=== PATIENT | female | born 1995 | race Two or more races ===

== ENCOUNTER 2016-05-19 12:34 | Emergency (ER) | payer MEDICAID ==
[2016-05-19 12:43] VITALS: RESP 16; TEMP 98.4
[2016-05-19] MEDS ORDERED: IBUPROFEN 600 MG TAB PO ONE ×2 (12:59→13:10)
[2016-05-19] MEDS ORDERED: DEXAMETHASONE 4 MG TAB PO ONE (13:35)
[2016-05-19] MEDS ORDERED: DEXAMETHASONE 10 MG/ML VIAL ONE (13:36)
[2016-05-19] MEDS ORDERED: HYDROCOD/APAP 5/325 PREPACK#6 BTL TAKEHOME ONE ×2 (13:37→13:47)
--- NOTE | 2016-05-19 13:46 | EDPHY ---
H & P Time Seen by Provider: 05/19/16 13:18 HPI/ROS: HPI Sore throat. 20-year-old female by private vehicle. Patient reports a worsening sore throat greater on the right side of her throat and radiating up through the ear for the last 4 days. She is able swallow by pain is worse with swallowing. Denies any voice changes or stridor. She has had some nasal congestion/rhinitis as well. ROS: Constitutional: No fever, no chills. No weakness. Eyes: No discharge. No changes in vision. ENT: As above. Respiratory: No cough. No shortness of breath. Cardiac: No chest pain, no palpitations. Gastrointestinal: No abdominal pain, no vomiting, no diarrhea. Genitourinary: No hematuria. No dysuria or increased frequency with urination. Musculoskeletal: No back pain. No neck pain. No myalgias or arthralgias. Skin: No rashes. Neurological: No headache. No focal weakness or altered sensation. Past medical history: Strep throat. Social history: Here by herself. Physical Exam: General Appearance: Alert, no distress. This patient is responding to questions appropriately and in full sentences. This patient appears well- hydrated and well-nourished. Eyes: Pupils equal and round no pallor or injection. No lid edema, erythema or injection. ENT, Mouth: Mucous membranes are moist. Some pharyngeal erythema noted. Scant exudates on the right pharyngeal arches tonsillar pillar. No asymmetry to suggest abscess. Right external auditory canal and tympanic membrane are normal on speculum examination. Left tympanic membrane and external auditory canal are normal. Neurological: Motor sensory function is grossly intact. Cranial nerves are normal. Gait is normal. Skin: Warm and dry, no rashes. Musculoskeletal: Neck is supple and nontender. No significant cervical lymphadenopathy. Extremities are symmetrical. All joints range without pain or impingement. Psychiatric: No agitation. No depression. Database: Rapid strep-negative. EKG: Imaging: Procedures: Emergency department course: Patient given 800 mg of ibuprofen in the emergency department. After my evaluation she received 10 mg of oral Decadron. She is driving. Rapid strep obtained. Results of this assays discussed with her. She feels comfortable going home and I feel she is safe for discharge. Will prescribe high-dose ibuprofen, limited Vicodin and a repeat dose of Decadron to be taken tomorrow afternoon. Patient comfortable with this plan. Return to emergency department precautions discussed. All of her questions were answered. Follow-up reviewed. She was discharged in good condition. Differential Diagnosis: The differential diagnosis on this patient includes but is not limited to viral pharyngitis, streptococcal pharyngitis. Retropharyngeal abscess, peritonsillar abscess, tracheitis, epiglottitis unlikely. This represents a partial list of diagnoses considered. These considerations are based on history, physical exam , past history, reassessment and diagnostic testing. Smoking Status: Never smoked Constitutional: Initial Vital Signs Temperature (C) 36.9 C 05/19/16 12:41 Heart Rate 88 05/19/16 12:41 Respiratory Rate 16 05/19/16 12:41 Blood Pressure 120/73 05/19/16 12:41 O2 Sat (%) 96 05/19/16 12:41 Allergies/Adverse Reactions: No Known Allergies Allergy (Verified 05/19/16 12:40) Home Medications: Medication Instructions Recorded Dexamethasone [Decadron 4 MG (RX)] 8 mg PO ONCE #2 tab 05/19/16 QUEtiapine FUMARATE [Seroquel 50 50 mg PO DAILY 05/19/16 mg (*)] lamoTRIgine [LamICTAL 100 MG (*)] 100 mg PO 05/19/16 Medical Decision Making - Data Points Laboratory Results: 05/19/16 05/19/16 Unknown 12:57 Group A Strep Screen NEGATIVE (NEGATIVE) Group A Strep DNA Pending Medications Given: Discontinued Medications Dexamethasone (Decadron) 10 mg PO EDNOW ONE Stop: 05/19/16 13:36 Last Admin: 05/19/16 13:38 Dose: 10 mg Ibuprofen (Motrin) 600 mg PO EDNOW ONE Stop: 05/19/16 13:11 Last Admin: 05/19/16 13:30 Dose: 600 mg Departure - Departure Disposition: Home, Routine, Self-Care Clinical Impression: Pharyngitis Condition: Good Instructions: Pharyngitis (ED) Additional Instructions: Read and follow provided instructions. Follow-up with your primary care physician in 1-2 days for re-evaluation. Ibuprofen dosin mg every 6 hours with meals for the next 3 days only. Freeman/Percocet dosin-2 every 4-6 hours for [address] Do not drive on this medication. Take 1 time dose of Decadron tomorrow only as needed for continued sore throat. Return to the emergency department for worsening pain, difficulty swallowing, high fever or other serious concerns. Referrals: [place],. [Primary Care Provider] - As per Instructions Prescriptions: Dexamethasone [Decadron 4 MG (RX)] 8 mg PO ONCE #2 tab
[2016-05-19 14:11] VITALS: BP 125/81; PULSE 81; O2SAT 98
== END 2016-05-19 14:10 | disposition home or self-care (01) ==
DX: J02.9 Acute pharyngitis, unspecified (principal)

== ENCOUNTER 2016-05-21 02:39 | Emergency (ER) | payer MEDICAID ==
[2016-05-21 02:46] VITALS: RESP 16; TEMP 98.8
[2016-05-21] MEDS ORDERED: KETOROLAC 30 MG/1 ML SDV IVP ONE ×2 (03:29)
[2016-05-21] MEDS ORDERED: DEXAMETHASONE 10 MG/ML VIAL IVP ONE (03:29)
[2016-05-21] MEDS ORDERED: NS 1,000 ML IV ONE ×2 (03:29)
[2016-05-21] MEDS ORDERED: DEXAMETHASONE VARIABLE DOSE IVP/PO ONE (03:30)
--- NOTE | 2016-05-21 03:30 | EDPHY ---
HPI/HX/ROS/PE/MDM Narrative: Chief complaint: Sore throat, difficulty swallowing HPI: 20-year-old female presenting with 3-4 days of increasing sore throat and difficulty swallowing. She was seen emergency department 2 days ago and started on amoxicillin. She was given Decadron and Vicodin at that time as well. Patient states the pain is getting worse. She is unable to swallow. Has not had anything a drink since yesterday. Some subjective fevers and chills. Is unable to swallow her antibiotics or pain medicine. This is due to pain. She is able to handle her secretions. ROS: 10 point Review of Systems is negative except as noted in the HPI. Physical exam: Gen: Awake, Alert, No Distress HEENT: Nose: no rhinorrhea Eyes: PERRLA, EOMI Mouth: Moist mucosa T has asymmetrical swelling with the right peritonsillar region erythematous and swollen with shift of the uvula to the left consistent with possible peritonsillar abscess Neck: Supple, no JVD, no masses Chest: nontender, lungs clear to auscultation Heart: S1, S2 normal, no murmur Abd: Soft, non-tender, no guarding Back: no CVA tenderness, no midline tenderness Ext: no edema, non-tender Skin: no rash Neuro: CN II-XII intact, Sensation grossly intact, Strength 5/5 in bilateral upper and lower extremities (Luis Parra) ED Course: CT scan shows a right-sided 1.5 x 2 cm peritonsillar collection consistent with abscess per Dr. Cleveland. Procedure note: Abscess aspiration. Indication, peritonsillar abscess. Patient was anesthetized with Hurricaine spray with excellent anesthetic effect. Using control syringe, an 18 gauge spinal needle with the richard cut to allow for a needle exposure of a little over a cm in depth the needle was placed in the peritonsillar region centrally and aspirated. There was a scant amount of pus aspirated. This was repeated 3 more times in alternate areas around the site. Patient tolerated the procedure well. There is no significant amounts of pus aspirated. There is slight amount of bleeding without further complication. Procedure was performed by myself. 20-year-old with peritonsillar abscess. I have ordered 3 g of IV Unasyn. I have attempted aspiration with 3-4 needle sticks without any successful aspiration. Ear Nose and Throat doctors been paged. Dr Miller agrees with plan for IV antibiotics. She has already gotten steroids now. He will see her later this morning for drainage in the ED with plan to go home. (Luis Parra ) This patient was cared for by Dr. Parra. She was discharged from the emergency department to go to the Otolaryngology office for drainage of her peritonsillar abscess. I was not involved in her care. (Dorene Lovell) - Data Points Laboratory Results: 05/21/16 03:43 Monoscreen NEGATIVE (NEGATIVE) Medications Given: Discontinued Medications Dexamethasone (Decadron Injection) 10 mg IVP EDNOW ONE Stop: 05/21/16 03:30 Last Admin: 05/21/16 08:02 Dose: Not Given Dexamethasone Sodium Phosphate (Decadron) 10 mg IVP/PO ONCE ONE Stop: 05/21/16 03:31 Last Admin: 05/21/16 03:47 Dose: 10 mg Sodium Chloride (Ns) 1,000 mls @ 0 mls/hr IV ONCE ONE PRN Reason: Wide Open Stop: 05/21/16 03:30 Last Admin: 05/21/16 05:39 Dose: 1,000 mls Sodium Chloride (Ns) 1,000 mls @ 1,000 mls/hr IV EDNOW ONE Stop: 05/21/16 04:28 Last Admin: 05/21/16 03:47 Dose: 1,000 mls Ampicillin Sodium/Sulbactam (Sodium 3 gm/ Sodium Chloride) 100 mls @ 200 mls/ hr IV EDNOW ONE PRN Reason: Protocol Stop: 05/21/16 05:55 Last Admin: 05/21/16 05:54 Dose: 100 mls Ketorolac Tromethamine (Toradol) 30 mg IVP EDNOW ONE Stop: 05/21/16 03:30 Last Admin: 05/21/16 08:02 Dose: Not Given Ketorolac Tromethamine (Toradol) 30 mg IVP EDNOW ONE Stop: 05/21/16 03:30 Last Admin: 05/21/16 03:46 Dose: 30 mg Morphine Sulfate (Morphine) 4 mg IVP EDNOW ONE Stop: 05/21/16 03:47 Last Admin: 05/21/16 03:59 Dose: 4 mg Morphine Sulfate (Morphine) 4 mg IVP EDNOW ONE Stop: 05/21/16 05:31 Last Admin: 05/21/16 05:38 Dose: 4 mg Morphine Sulfate (Morphine) 2 mg IVP EDNOW ONE Stop: 05/21/16 08:05 Last Admin: 05/21/16 08:22 Dose: 2 mg General Time Seen by Provider: 05/21/16 03:21 Initial Vital Signs: Initial Vital Signs Temperature (C) 37.1 C 05/21/16 02:44 Heart Rate 101 H 05/21/16 02:44 Respiratory Rate 16 05/21/16 02:44 O2 Sat (%) 97 05/21/16 02:44 O2 Delivery Mode Room Air Allergies/Adverse Reactions: No Known Allergies Allergy (Verified 05/21/16 02:42) Home Medications: Medication Instructions Recorded QUEtiapine FUMARATE [Seroquel 50 50 mg PO DAILY 05/19/16 mg (*)] lamoTRIgine [LamICTAL 100 MG (*)] 100 mg PO 05/19/16 Amoxicillin 05/21/16 Hydrocod-Homatrop 5-1.5 mg Tab 05/21/16 Departure - Departure Disposition: Home, Routine, Self-Care Clinical Impression: Peritonsillar abscess Condition: Fair Instructions: Peritonsillar Abscess (ED) Additional Instructions: Go directly to the Ear, Nose, and Throat doctors offices. Referrals: Roosevelt Miller MD [Medical Doctor] - As per Instructions
[2016-05-21] MEDS ORDERED: DEXAMETHASONE 10 MG/ML VIAL ONE (03:31)
[2016-05-21] MEDS ORDERED: IOPAMIDOL (ISOVUE-300) 50 ML VIAL IV ONE (04:40)
[2016-05-21] MEDS ORDERED: BENZOCAINE UNIT DOSE SPRAY HURRICAINE MM ONE (05:09)
[2016-05-21] MEDS ORDERED: AMPICILLIN/SULBACTAM 3 GM in NS 100 ML IV ONE ×2 (05:24→05:26)
[2016-05-21 08:02] VITALS: BP 105/49; PULSE 69; O2SAT 95
--- NOTE | 2016-05-21 09:02 | CT ---
CT Soft Tissue Neck With Contrast Enhancement History: 20-year-old with possible tonsillar abscess, right tonsillar swelling, and difficulty swallo wing. Comparison: None available. Technique: Axial computed tomographic images of the neck soft tissues obtained from the skull base to the thoracic inlet during the uneventful intravenous administration of 80 mL Isovue-300 contrast. Do se reduction techniques were utilized. Findings: The visible brain and orbits are normal. There is minimal mucous membrane thickening in the paranasal sinuses. The mastoid air cells are clear. The parotid, submandibular, and thyroid glands a re normal. Scattered mildly prominent cervical lymph nodes are likely reactive. There is a 1.3 x 1.3 x 2.1 (transverse by craniocaudal) peripherally enhancing low-attenuation collection in the right pal atine tonsil (series 3 image 74 e.g.), with mild adjacent inflammation and mild mass effect on the ai rway, with the airway widely patent. Mild rightward curvature of the visible cervical and thoracic sp ine is noted, possibly positional. The lung apices are clear. The common and internal carotid arterie s are widely patent. Impression: 1. 2.1 cm low-attenuation collection in the right palatine tonsil, possibly representing a phlegmon o r abscess. Clinical follow up is recommended. 2. Mildly prominent cervical lymph nodes, likely reactive. 3. Additional findings, as above. Findings discussed with Luis Parra today at 0510 hours. The preliminary and final reports were con cordant. e:bakari
== END 2016-05-21 08:35 | disposition home or self-care (01) ==
PROC: 0C9PXZZ Drainage of Tonsils, External Approach (ICD-10-PCS; principal; 2016-05-21)
DX: J36 Peritonsillar abscess (principal)
CPT/HCPCS: 96365; J0295; J1885; Q9967

== ENCOUNTER 2016-09-25 11:32 | Emergency (ER) | payer MEDICAID ==
[2016-09-25 11:40] VITALS: PULSE 90; O2SAT 97
--- NOTE | 2016-09-25 11:56 | EDPHY ---
H & P Time Seen by Provider: 09/25/16 11:43 HPI/ROS: CHIEF COMPLAINT: Sore throat x4 days HISTORY OF PRESENT ILLNESS: 21-year-old immunocompetent female prior history of peritonsillar abscess, complaining of 3-4 days of sore throat, subjective fever, no trismus no drooling, no change in voice, no fever or chills, no nuchal rigidity. REVIEW OF SYSTEMS: A ten point review of systems was performed and is negative with the exception of the items mentioned in the HPI PAST MEDICAL & SURGICAL HISTORY: Prior history of peritonsillar abscess drainage SOCIAL HISTORY: nonsmoker PHYSICAL EXAM (Prior to examination, patient consented to physical exam, hands were washed and my usual and customary physical exam procedures followed) 1) GENERAL: Well-developed, well-nourished, alert and oriented. Appears to be in no acute distress. 2) HEAD: Normocephalic, atraumatic 3) HEENT: Pupils equal, round, reactive to light bilaterally. Sclera anicteric. Oropharynx: No trismus no drooling. Bilateral tonsils are symmetrically enlarged with white exudate with uvula midline no pointing. No hot potato voice. No evidence of peritonsillar or retropharyngeal abscess. Ears bilaterally with normal tympanic membranes. 4) NECK: Full range of motion, no meningeal signs. 5) LUNGS: Clear auscultation bilaterally, no wheezes, no rhonchi, no retractions. 6) HEART: Regular rate and rhythm, no murmur, no heave, no gallop. 7) ABDOMEN: No guarding, no rebound, no focal tenderness,, 8) MUSCULOSKELETAL: No peripheral edema or discoloration. 9) BACK: No CVA tenderness, 10) SKIN: No rash, no petechiae. 11) Psychiatric: Patient is oriented X 3, there is no agitation. DIFFERENTIAL DIAGNOSIS: in no particular include but limited to peritonsillar abscess , retropharyngeal abscess, mononucleosis Smoking Status: Never smoked Constitutional: Initial Vital Signs Temperature (C) 36.6 C 09/25/16 11:37 Heart Rate 90 09/25/16 11:37 Respiratory Rate 18 09/25/16 11:37 Blood Pressure 118/73 09/25/16 11:37 O2 Sat (%) 97 09/25/16 11:37 O2 Delivery Mode Room Air Allergies/Adverse Reactions: No Known Allergies Allergy (Verified 09/25/16 11:36) Home Medications: Medication Instructions Recorded Amoxicillin/Clavulanate Pot 875 mg PO BID #14 tab 09/25/16 [Augmentin 875 mg tab] QUEtiapine FUMARATE [Seroquel 100 100 mg PO DAILY 09/25/16 mg (*)] lamoTRIgine [LamICTAL 100 MG (*)] 100 mg PO 09/25/16 methylPREDNISolone [Medrol Dose 4 mg PO DAILY #1 ea 09/25/16 Thompson] MDM/Departure - MDM ED Course/Re-evaluation: High clinical suspicion for strep pharyngitis. Recommended empiric treatment. Doubt peritonsillar abscess. Usual and customary pharyngitis precautions and instructions provide - Depart Disposition: Home, Routine, Self-Care Clinical Impression: Acute streptococcal pharyngitis Condition: Good Instructions: Strep Throat (ED) Additional Instructions: Return to the ER immediately if you cannot swallow, have drooling, fevers, neck stiffness, cannot open your jaw, or any other symptoms that concern you. Prescriptions: Amoxicillin/Clavulanate Pot [Augmentin 875 mg tab] 875 mg PO BID #14 tab methylPREDNISolone [Medrol Dose Thompson] 4 mg PO DAILY #1 ea Referrals: Kelly Sanchez MD [Medical Doctor] - 2-3 days, if not improved
[2016-09-25 12:11] VITALS: BP 114/73; RESP 16; TEMP 97.5
== END 2016-09-25 12:11 | disposition home or self-care (01) ==
DX: J02.0 Streptococcal pharyngitis (principal)

== ENCOUNTER 2017-03-31 21:31 | Emergency (ER) | payer MEDICAID ==
[2017-03-31] MEDS ORDERED: IBUPROFEN 600 MG TAB PO ONE (22:08)
[2017-03-31] MEDS ORDERED: ACETAMINOPHEN 500 MG TAB PO ONE (22:08)
[2017-03-31] MEDS ORDERED: NS 1,000 ML IV ONE (22:13)
[2017-03-31] MEDS ORDERED: IPRATROPIUM/ALBUTEROL 3 ML DEYVIAL IH ONE (22:13)
--- NOTE | 2017-03-31 22:13 | EDPHY ---
H & P Stated Complaint: ill x 1 week, URI symtpoms, Hx of asthma HPI/ROS: HPI CHIEF COMPLAINT: Cough , fever, wheezing HISTORY OF PRESENT ILLNESS: This patient is a 21-year-old female she presents to the emergency room with cough, fever, shortness of breath and wheezing. She reports she has asthma and she took her inhaler however did not work. So she decided come the emergency room. Upon arrival to the emergency room is noted that she is febrile to 102. Tachycardic to 117 but normotensive. She does complain muscle aches and joint pain. Upper respiratory tract infection type symptoms. She has been sick for 2 days. She denies productive cough or chest pain. Denies abdominal pain. Denies sore throat. Her ear pain. Past Medical History: No significant medical history except for asthma Past Surgical History: No recent surgical history Social History: Denies daily use drugs alcohol tobacco products. [employer] student. Family History: Noncontributory. ROS REVIEW OF SYSTEMS: A comprehensive 10 point review of systems is otherwise negative aside from elements mentioned in the history of present illness. Exam Constitutional appears well nontoxic triage nursing summary reviewed, vital signs reviewed, awake/alert. Vital signs noted tachycardic, febrile. Eyes normal conjunctivae and sclera, EOMI, PERRLA. HENT normal inspection, atraumatic, moist mucus membranes, no epistaxis, neck supple/ no meningismus, no raccoon eyes. Respiratory clear to auscultation bilaterally, normal breath sounds, no respiratory distress, no wheezing. Cardiovascular tachycardic, regular rhythm, no murmur, no edema, distal pulses normal. Gastrointestinal soft, non-tender, no rebound, no guarding, normal bowel sounds, no distension, no pulsatile mass. Genitourinary no CVA tenderness. Musculoskeletal no midline vertebral tenderness, full range of motion, no calf swelling, no tenderness of extremities, no meningismus, good pulses, neurovascularly intact. Skin pink, warm, & dry, no rash, skin atraumatic. Neurologic awake, alert and oriented x 3, AAOx3, moves all 4 extremities equally, motor intact, sensory intact, CN II-XII intact, normal cerebellar, normal vision, normal speech. Psychiatric normal mood/affect. Heme/Lymph/Immune no lymphadenopathy. Differential Diagnosis: Includes but is not limited to in a particular order, upper respiratory tract infection, viral syndrome, influenza, pneumonia, asthma Medical Decision Making: Plan for this patient IV establishment IV fluid bolus , Tylenol Motrin for fever control, influenza test, chest x-ray two view to rule out pneumonia. Re-evaluate. DuoNeb breathing treatment. Re-evaluation: ED x-ray chest two view: Negative for acute cardiopulmonary disease specifically no pneumonia. 2332: Patient is influenza a positive. Will start on Tamiflu. Prescription for Tamiflu prednisone albuterol and azithromycin. 2332: I did re-evaluate her she is feeling much better after DuoNeb breathing treatment. Fever was improved Tylenol Motrin. She received IV fluids and is feeling much better. Chest x-ray reviewed shows no concomitant pneumonia with influenza a positive. I will allow her to go home she is not hypoxic. Tachycardia improved fever down. She feels better. Return precautions given. Prescription given for prednisone, albuterol, azithromycin, Tamiflu Source: Patient - Personal History LMP (Females 10-55): Now Current Tetanus/Diphtheria Vaccine: No - Medical/Surgical History Hx Asthma: Yes Hx Chronic Respiratory Disease: No Hx Diabetes: No Hx Cardiac Disease: No Hx Renal Disease: No Hx Cirrhosis: No Hx Alcoholism: No Hx HIV/AIDS: No Hx Splenectomy or Spleen Trauma: No Other PMH: PMHx: Asthma, hx of peritonsilar abcess. PSHx: denies - Social History Smoking Status: Never smoked Constitutional: Initial Vital Signs Temperature (C) 39.3 C H 03/31/17 21:37 Heart Rate 117 H 03/31/17 21:37 Respiratory Rate 16 03/31/17 21:37 Blood Pressure 137/78 H 03/31/17 21:37 O2 Sat (%) 95 03/31/17 21:37 O2 Delivery Mode Room Air Allergies/Adverse Reactions: No Known Allergies Allergy (Verified 09/25/16 11:36) Home Medications: Medication Instructions Recorded QUEtiapine FUMARATE [Seroquel 100 100 mg PO DAILY 09/25/16 mg (*)] lamoTRIgine [LamICTAL 100 MG (*)] 100 mg PO 09/25/16 AZITHROMYCIN [Z-PACK] 250 mg PO DAILY #6 tab 03/31/17 Albuterol [Proventil Inhaler HFA 1 - 2 puffs IH Q4H #1 mdi 11/20/17 (*)] Oseltamivir Phosphate [Tamiflu 75 75 mg PO BID #10 cap 03/31/17 mg (*)] predniSONE 60 mg PO DAILY #15 tab 03/31/17 Medical Decision Making - Data Points Laboratory Results: Laboratory Results 03/31/17 22:00 03/31/17 22:00 03/31/17 03/31/17 03/31/17 22:17 22:00 22:00 WBC 7.56 10^3/uL 10^3/uL (3.80-9.50) RBC 4.11 10^6/uL L 10^6/uL (4.18-5.33) Hgb 12.4 g/dL L g/dL (12.6-16.3) Hct 37.9 % L % (38.0-47.0) MCV 92.2 fL fL (81.5-99.8) MCH 30.2 pg pg (27.9-34.1) MCHC 32.7 g/dL g/dL (32.4-36.7) RDW 14.0 % % (11.5-15.2) Plt Count 232 10^3/uL 10^3/uL (150-400) MPV 9.8 fL fL (8.7-11.7) Neut % (Auto) 72.6 % % (39.3-74.2) Lymph % (Auto) 14.2 % L % (15.0-45.0) [place] % (Auto) 12.0 % % (4.5-13.0) Eos % (Auto) 0.7 % % (0.6-7.6) Baso % (Auto) 0.4 % % (0.3-1.7) Nucleat RBC Rel Count 0.0 % % (0.0-0.2) Absolute Neuts (auto) 5.49 10^3/uL 10^3/uL (1.70-6.50) Absolute Lymphs (auto) 1.07 10^3/uL 10^3/uL (1.00-3.00) Absolute Monos (auto) 0.91 10^3/uL H 10^3/uL (0.30-0.80) Absolute Eos (auto) 0.05 10^3/uL 10^3/uL (0.03-0.40) Absolute Basos (auto) 0.03 10^3/uL 10^3/uL (0.02-0.10) Absolute Nucleated RBC 0.00 10^3/uL 10^3/uL (0-0.01) Immature Gran % 0.1 % % (0.0-1.1) Immature Gran # 0.01 10^3/uL 10^3/uL (0.00-0.10) Sodium 137 mEq/L mEq/L (134-144) Potassium 3.4 mEq/L L mEq/L (3.5-5.2) Chloride 100 mEq/L mEq/L (97-110) Carbon Dioxide 25 mEq/l mEq/l (22-31) Anion Gap 12 mEq/L mEq/L (8-16) BUN 13 mg/dL mg/dL (7-23) Creatinine 0.8 mg/dL mg/dL (0.6-1.0) Estimated GFR > 60 Glucose 110 mg/dL H mg/dL (70-100) Calcium 9.2 mg/dL mg/dL (8.5-10.4) Nasal Influenza A PCR FLU A DETECTED (NEGATIVE) Nasal Influenza B PCR NEGATIVE FOR FLU B (NEGATIVE) Medications Given: Discontinued Medications Acetaminophen (Tylenol) 1,000 mg PO EDNOW ONE Stop: 03/31/17 22:09 Last Admin: 03/31/17 22:12 Dose: 1,000 mg Albuterol/Ipratropium (Duoneb) 3 ml IH EDNOW ONE Stop: 03/31/17 22:14 Last Admin: 03/31/17 22:26 Dose: 3 ml Sodium Chloride (Ns) 1,000 mls @ 0 mls/hr IV ONCE ONE; Wide Open PRN Reason: Protocol Stop: 03/31/17 22:14 Last Admin: 03/31/17 22:26 Dose: 1,000 mls Ibuprofen (Motrin) 600 mg PO EDNOW ONE Stop: 03/31/17 22:09 Last Admin: 03/31/17 22:12 Dose: 600 mg Prednisone (Prednisone) 60 mg PO EDNOW ONE Stop: 03/31/17 23:07 Last Admin: 03/31/17 23:16 Dose: 60 mg Departure - Departure Disposition: Home, Routine, Self-Care Clinical Impression: Acute bronchitis Qualifiers: Bronchitis organism: unspecified organism Qualified Code(s): J20.9 - Acute bronchitis, unspecified Condition: Good Instructions: Acute Cough (ED), Wheezing (ED) Additional Instructions: 1. Drink lots of fluids stay well-hydrated. 2. Take her medications as prescribed. 3. Return emergency room if you have worsening symptoms questions or concerns. Referrals: UNK,PCP [Other] - As per Instructions Prescriptions: Albuterol [Proventil Inhaler HFA (*)] 1 - 2 puffs IH Q4H #1 mdi AZITHROMYCIN [Z-PACK] 250 mg PO DAILY #6 tab Oseltamivir Phosphate [Tamiflu 75 mg (*)] 75 mg PO BID #10 cap predniSONE 60 mg PO DAILY #15 tab
[2017-03-31 22:21] LABS: % IMMATURE GRANULYOCYTES 0.1 % (0.0-1.1); ABSOLUTE IMMATURE GRANULOCYTES 0.01 10^3/uL (0.00-0.10); ADD DIFF? NO; ADD MORPH? NO; ADD SCAN? NO; ATYPICAL LYMPHOCYTE FLAG 20 (0-99); FRAGMENT RBC FLAG 0 (0-99); HEMATOCRIT 37.9 % (38.0-47.0); HEMOGLOBIN 12.4 g/dL (12.6-16.3); LEFT SHIFT FLG 0 (0-99); LIPEMIA HEMOLYSIS FLAG 80 (0-99); MEAN CELL HEMOGLOBIN 30.2 pg (27.9-34.1); MEAN CELL HEMOGLOBIN CONCENTR. 32.7 g/dL (32.4-36.7); MEAN CELL VOLUME 92.2 fL (81.5-99.8); MEAN PLATELET VOLUME 9.8 fL (8.7-11.7); PLATELET CLUMPS FLAG 0 (0-99); PLATELET COUNT 232 10^3/uL (150-400); RED BLOOD CELL COUNT 4.11 10^6/uL (4.18-5.33)
[2017-03-31 22:40] LABS: ANION GAP 12 mEq/L (8-16); CALCIUM 9.2 mg/dL (8.5-10.4); CARBON DIOXIDE 25 mEq/l (22-31); CHLORIDE 100 mEq/L (97-110); CREATININE 0.8 mg/dL (0.6-1.0); GLOMERULAR FILTRATION RATE > 60; GLUCOSE 110 mg/dL (70-100); POTASSIUM 3.4 mEq/L (3.5-5.2); SODIUM 137 mEq/L (134-144)
[2017-03-31 22:57] VITALS: TEMP 100.4; O2SAT 99
[2017-03-31] MEDS ORDERED: predniSONE 20 MG TAB PO ONE (23:06)
[2017-03-31] MEDS ORDERED: OSELTAMIVIR PHOSPHATE 75 MG CAP PO ONE (23:31)
[2017-03-31 23:45] VITALS: BP 125/68; PULSE 110; RESP 18
== END 2017-03-31 23:51 | disposition home or self-care (01) ==
DX: J20.9 Acute bronchitis, unspecified (principal); J45.909 Unspecified asthma, uncomplicated; E86.9 Volume depletion, unspecified

== ENCOUNTER 2017-09-24 17:43 | Emergency (ER) | payer MEDICAID ==
--- NOTE | 2017-09-24 18:03 | EDPHY ---
H & P Stated Complaint: pelvic pain x 1.5 weeks/saw pcp/was tested?? and given shot Time Seen by Provider: 09/24/17 17:56 HPI/ROS: CHIEF COMPLAINT: Lower abdominal pain times 10 days HISTORY OF PRESENT ILLNESS: 22-year-old immunocompetent female complaining of 10 days of bilateral lower abdominal pain. Was seen by PCP yesterday for same symptoms and given unknown intramuscular shot. Specifically for what and what the medication was is not known by the patient. She denies nausea or vomiting. Denies urinary abnormality such as dysuria, hematuria, increased frequency. Denies flank pain. Denies unusual vaginal discharge or bleeding. Denies abdominal or other trauma. REVIEW OF SYSTEMS: A ten point review of systems was performed and is negative with the exception of the items mentioned in the HPI PAST MEDICAL & SURGICAL HISTORY: No pertinent medical or surgical history SOCIAL HISTORY: Single [ PHYSICAL EXAM (Prior to examination, patient consented to physical exam, hands were washed and my usual and customary physical exam procedures followed) 1) GENERAL: Well-developed, well-nourished, alert and oriented. Appears to be in no acute distress. 2) HEAD: Normocephalic, atraumatic 3) HEENT: Pupils equal, round, reactive to light bilaterally. Sclera anicteric. 4) NECK: Full range of motion, no meningeal signs. 5) LUNGS: Clear auscultation bilaterally, no wheezes, no rhonchi, no retractions. 6) HEART: Regular rate and rhythm, no murmur, no heave, no gallop. 7) ABDOMEN: No guarding, mildly tender to palpation bilateral lower quadrants. No midline/suprapubic pain. negative McBurney's, negative Ruby's, negative Rovsing's, negative peritoneal sign, 8) MUSCULOSKELETAL: Moving all extremities, no focal areas of tenderness, no obvious trauma. No peripheral edema or discoloration. 9) BACK: No CVA tenderness, no midline vertebral tenderness, no fluctuance, no step-off, no obvious trauma, no visual or palpable abnormality. 10) SKIN: No rash, no petechiae. [11) PELVIC (with female nurse Valarie at bedside): Normal female external genitalia, no lesions visualized. Speculum examination reveals no vaginal bleeding or discharge, normal vaginal rugae, os closed, positive cervical motion tenderness. No adnexal tenderness no adnexal mass, ] DIFFERENTIAL DIAGNOSIS: My differential diagnosis includes, but is not limited to, acute appendicitis, acute cholecystitis, bowel obstruction, acute pancreatitis, ovarian torsion, ectopic , pelvic inflammatory disease, gastritis and urinary tract infection. The patient understands that this diagnosis is provisional and can never be 100% accurate. This is a partial list of diagnoses considered. These considerations are based on history, physical exam, past history and reassessment. - Personal History LMP (Females 10-55): 8-14 Days Ago Current Tetanus/Diphtheria Vaccine: Yes - Medical/Surgical History Hx Asthma: Yes Hx Chronic Respiratory Disease: No Hx Diabetes: No Hx Cardiac Disease: No Hx Renal Disease: No Hx Cirrhosis: No Hx Alcoholism: No Hx HIV/AIDS: No Hx Splenectomy or Spleen Trauma: No Other PMH: PMHx: Asthma, hx of peritonsilar abcess. PSHx: denies - Social History Smoking Status: Never smoked Constitutional: Initial Vital Signs Temperature (C) 37.2 C 09/24/17 17:47 Heart Rate 69 09/24/17 17:47 Respiratory Rate 18 09/24/17 17:47 Blood Pressure 117/66 09/24/17 17:47 O2 Sat (%) 98 09/24/17 17:47 O2 Delivery Mode Room Air Allergies/Adverse Reactions: No Known Allergies Allergy (Verified 09/24/17 17:45) Home Medications: Medication Instructions Recorded lamoTRIgine [LamICTAL 100 MG (*)] 100 mg PO 09/25/16 Doxycycline Hyclate 100 mg PO BID 14 Days capsule 09/24/17 [place] 3 mg-0.03 mg Tablet 09/24/17 Medical Decision Making - Diagnostics Imaging Results: Imaging Impressions Pelvic/Renal Ultrasound 09/24/17 18:02 Impression: 1. There is a mildly complex right ovarian hemorrhagic follicular cyst measuring 1.6 cm, and a slightly involuting simple-appearing 1.5 cm left ovarian follicular cyst. There is no evidence of torsion. 2. There is a small amount of free fluid in the pelvic cul-de-sac, and surrounding uterine fundus. Findings were discussed with Jonah Valdez PA-C at 19:30, on 09/24/2017. ED Course/Re-evaluation: Re-evaluation with serial examinations. Pelvic examination performed at this time reveals positive cervical motion tenderness. Patient also reports dyspareunia. Plan will be treatment for pelvic inflammatory disease. I think she can be treated on outpatient basis. No tubo-ovarian abscess seen on pelvic ultrasound. She is noted to have bilateral ovarian cyst. No evidence of torsion. Her abdomen has been re-examined with serial exams. No McBurney's point pain. Doubt acute appendicitis. Patient notes that she was given an unknown injection her PCPs office yesterday. I am unable to confirm whether this was Rocephin. Subsequently she has been given intramuscular Rocephin and prescription for doxycycline for treatment of pelvic inflammatory disease. Given usual and customary discharge precautions instructions. She feels comfortable being discharged. Care of patient under supervision of secondary supervising physician Dr Palacios . - Data Points Laboratory Results: Laboratory Results 09/24/17 18:05 09/24/17 18:05 09/24/17 09/24/17 09/24/17 19:52 19:52 19:52 WBC RBC Hgb Hct MCV MCH MCHC RDW Plt Count MPV Neut % (Auto) Lymph % (Auto) [place] % (Auto) Eos % (Auto) Baso % (Auto) Nucleat RBC Rel Count Absolute Neuts (auto) Absolute Lymphs (auto) Absolute Monos (auto) Absolute Eos (auto) Absolute Basos (auto) Absolute Nucleated RBC Immature Gran % Immature Gran # Sodium Potassium Chloride Carbon Dioxide Anion Gap BUN Creatinine Estimated GFR Glucose Calcium Beta HCG, Qual Urine Color Urine Appearance Urine pH Ur Specific [place] Urine Protein Urine Ketones Urine Blood Urine Nitrate Urine Bilirubin Urine Urobilinogen Ur Leukocyte Esterase Urine RBC Urine WBC Ur Epithelial Cells Amorphous Sediment Urine Bacteria Urine Mucus Urine Glucose Trichomonas (Wet Prep) NO YEAST Mary species DNA Pending C.trachomatis RNA (TMA) Pending Gardnerella DNA Probe Pending N.gonorrhoeae RNA (TMA) Pending Trichomonas DNA Probe Pending 09/24/17 09/24/17 09/24/17 18:35 18:05 18:05 WBC RBC Hgb Hct MCV MCH MCHC RDW Plt Count MPV Neut % (Auto) Lymph % (Auto) [place] % (Auto) Eos % (Auto) Baso % (Auto) Nucleat RBC Rel Count Absolute Neuts (auto) Absolute Lymphs (auto) Absolute Monos (auto) Absolute Eos (auto) Absolute Basos (auto) Absolute Nucleated RBC Immature Gran % Immature Gran # Sodium 141 mEq/L mEq/L (135-145) Potassium 3.9 mEq/L mEq/L (3.3-5.0) Chloride 101 mEq/L mEq/L (97-110) Carbon Dioxide 25 mEq/l mEq/l (22-31) Anion Gap 15 mEq/L mEq/L (8-16) BUN 18 mg/dL mg/dL (7-23) Creatinine 0.8 mg/dL mg/dL (0.6-1.0) Estimated GFR > 60 Glucose 75 mg/dL mg/dL (70-100) Calcium 9.5 mg/dL mg/dL (8.5-10.4) Beta HCG, Qual NEGATIVE Urine Color YELLOW Urine Appearance CLEAR Urine pH 6.0 (5.0-7.5) Ur Specific [place] 1.024 (1.002-1.030) Urine Protein NEGATIVE (NEGATIVE) Urine Ketones NEGATIVE (NEGATIVE) Urine Blood NEGATIVE (NEGATIVE) Urine Nitrate NEGATIVE (NEGATIVE) Urine Bilirubin NEGATIVE (NEGATIVE) Urine Urobilinogen NEGATIVE EU EU (0.2-1.0) Ur Leukocyte Esterase NEGATIVE (NEGATIVE) Urine RBC 1-3 /hpf /hpf (0-3) Urine WBC 1-3 /hpf /hpf (0-3) Ur Epithelial Cells TRACE /lpf /lpf (NONE-1+) Amorphous Sediment PRESENT /hpf /hpf (NONE-1+) Urine Bacteria 1+ /hpf H /hpf (NONE SEEN) Urine Mucus TRACE /lpf /lpf (NONE-1+) Urine Glucose NEGATIVE (NEGATIVE) Trichomonas (Wet Prep) Mary species DNA C.trachomatis RNA (TMA) Gardnerella DNA Probe N.gonorrhoeae RNA (TMA) Trichomonas DNA Probe 09/24/17 18:05 WBC 9.75 10^3/uL H 10^3/uL (3.80-9.50) RBC 4.25 10^6/uL 10^6/uL (4.18-5.33) Hgb 13.1 g/dL g/dL (12.6-16.3) Hct 39.8 % % (38.0-47.0) MCV 93.6 fL fL (81.5-99.8) MCH 30.8 pg pg (27.9-34.1) MCHC 32.9 g/dL g/dL (32.4-36.7) RDW 12.9 % % (11.5-15.2) Plt Count 314 10^3/uL 10^3/uL (150-400) MPV 9.7 fL fL (8.7-11.7) Neut % (Auto) 60.8 % % (39.3-74.2) Lymph % (Auto) 31.7 % % (15.0-45.0) [place] % (Auto) 4.7 % % (4.5-13.0) Eos % (Auto) 2.3 % % (0.6-7.6) Baso % (Auto) 0.3 % % (0.3-1.7) Nucleat RBC Rel Count 0.0 % % (0.0-0.2) Absolute Neuts (auto) 5.93 10^3/uL 10^3/uL (1.70-6.50) Absolute Lymphs (auto) 3.09 10^3/uL H 10^3/uL (1.00-3.00) Absolute Monos (auto) 0.46 10^3/uL 10^3/uL (0.30-0.80) Absolute Eos (auto) 0.22 10^3/uL 10^3/uL (0.03-0.40) Absolute Basos (auto) 0.03 10^3/uL 10^3/uL (0.02-0.10) Absolute Nucleated RBC 0.00 10^3/uL 10^3/uL (0-0.01) Immature Gran % 0.2 % % (0.0-1.1) Immature Gran # 0.02 10^3/uL 10^3/uL (0.00-0.10) Sodium Potassium Chloride Carbon Dioxide Anion Gap BUN Creatinine Estimated GFR Glucose Calcium Beta HCG, Qual Urine Color Urine Appearance Urine pH Ur Specific [place] Urine Protein Urine Ketones Urine Blood Urine Nitrate Urine Bilirubin Urine Urobilinogen Ur Leukocyte Esterase Urine RBC Urine WBC Ur Epithelial Cells Amorphous Sediment Urine Bacteria Urine Mucus Urine Glucose Trichomonas (Wet Prep) Mary species DNA C.trachomatis RNA (TMA) Gardnerella DNA Probe N.gonorrhoeae RNA (TMA) Trichomonas DNA Probe Departure - Departure Disposition: Home, Routine, Self-Care Clinical Impression: Pelvic inflammatory disease (PID) Ovarian cyst Qualifiers: Laterality: bilateral Qualified Code(s): N83.201 - Unspecified ovarian cyst, right side Condition: Good Instructions: Pelvic Inflammatory Disease (ED), Ovarian Cyst (ED) Additional Instructions: Seek immediate medical attention if you develop new or worsening symptoms, if you develop fevers, chills, inability to tolerate oral intake or any other symptoms that concerns you. Referrals: ELIUD DELA CRUZ [Other] - 1-2 days without fail Prescriptions: Doxycycline Hyclate 100 mg PO BID 14 Days capsule
[2017-09-24 18:15] LABS: PLATELET COUNT 314 10^3/uL (150-400)
[2017-09-24] MEDS ORDERED: DOXYCYCLINE HYCLATE 100 MG CAP/TAB PO ONE (19:55)
[2017-09-24 21:10] VITALS: BP 118/74
[2017-09-25 15:15] LABS: GC AMPLIFICATION GENPROBE NEGATIVE (NEGATIVE)
== END 2017-09-24 21:08 | disposition home or self-care (01) ==
DX: N73.9 Female pelvic inflammatory disease, unspecified (principal); N83.201 Unspecified ovarian cyst, right side; J45.909 Unspecified asthma, uncomplicated
CPT/HCPCS: J0696